=== PATIENT | female | born 1990 | race Hispanic/Latino ===

== ENCOUNTER → 2020-07-12 | Outpatient (CLI) | payer OTHER ==
--- NOTE | 2020-07-12 12:15 | REP ---
INDICATION: PRESENCE OF INTRAUTERINE CONTRACEPTIVE DEVICE COMPARISON: None. TECHNIQUE: Transabdominal pelvic ultrasound followed by transvaginal examination for better evaluation of the endometrium and adnexa with color Doppler evaluation of the ovaries. FINDINGS: Bladder is unremarkable and measures 11.5 x 7.5 x 9.8 sent. Normal anteverted uterus measures 9.7 x 4.0 x 5.3 cm. The endometrial complex measures 10.4 mm thickness. IUD is identified in the lower uterine segment and appears malrotated. Bilateral ovaries are normal in appearance and vascularity without evidence for torsion. Right ovary measures 2.3 x 2.8 x 3.8 cm and includes 1.9 x 2.4 x 1.7 cm physiologic cyst/dominant follicle; R I = 0.76. Left ovary measures 3.5 x 2.1 x 2.9 cm and includes 1.4 x 1.7 x 1.2 cm dominant follicle/physiologic cyst; R I = 0.59. No pelvic fluid or adnexal mass lesion. IMPRESSION: 1. Normal uterus. IUD identified in the lower uterine segment and possibly malrotated 2. Bilateral ovaries are essentially normal and without torsion. <Electronically signed by Stu Yancey > 07/12/20 1214
== END ==
LOC: M RAD 11:14
PROVIDERS: ATTEND Physician Assistant
DX: Z97.5 Presence of (intrauterine) contraceptive device (principal)

== ENCOUNTER → 2020-08-09 | Outpatient (CLI) | payer OTHER | LOC: M LAB 12:17 | PROVIDERS: ATTEND Physician Assistant | DX: Z11.7 Encounter for testing for latent tuberculosis infection (principal) ==

== ENCOUNTER → 2020-08-15 | Outpatient (REF) | payer OTHER | LOC: M SFHCWAGY 11:45 | PROVIDERS: ATTEND Advanced Practice Midwife | DX: Z12.4 Encounter for screening for malignant neoplasm of cervix (principal) | CPT/HCPCS: G0123; G0463 ==

== ENCOUNTER → 2021-02-07 | Outpatient (REF) | payer OTHER ==
[2021-02-07 15:43] LABS: GC DNA AMPLIFICATION NEGATIVE (NEGATIVE)
== END ==
LOC: M SFHCWAGY 12:48
PROVIDERS: ATTEND Advanced Practice Midwife
DX: Z11.3 Encounter for screening for infections with a predominantly sexual mode of transmission (principal)
CPT/HCPCS: 87661; G0463

== ENCOUNTER → 2021-09-09 | Outpatient (CLI) | payer OTHER | LOC: M PLALAB 13:32 | PROVIDERS: ATTEND Advanced Practice Midwife | DX: O26.30 Retained intrauterine contraceptive device in pregnancy, unspecified trimester (principal); Z3A.00 Weeks of gestation of pregnancy not specified ==

== ENCOUNTER → 2021-10-08 | Outpatient (REF) | payer OTHER | LOC: M PLALAB 07:30 | PROVIDERS: ATTEND Specialist | DX: Z34.81 Encounter for supervision of other normal pregnancy, first trimester (principal) ==

== ENCOUNTER → 2021-11-12 | Outpatient (CLI) | payer OTHER | LOC: M PLALAB 09:55 | PROVIDERS: ATTEND Specialist | DX: Z34.81 Encounter for supervision of other normal pregnancy, first trimester (principal) ==

== ENCOUNTER → 2021-12-09 | Outpatient (REF) | payer OTHER | LOC: M SFHCDERM 14:52 | PROVIDERS: ATTEND Nurse Practitioner Family | DX: D23.5 Other benign neoplasm of skin of trunk (principal) | CPT/HCPCS: 11102; 88305; G0463 ==

== ENCOUNTER → 2022-01-01 | Outpatient (CLI) | payer OTHER ==
[2022-01-01 13:53] LABS: BASO # 0.1 10^3/uL (0.0-0.2); BASO % 0.5 % (0.0-1.0); EOS # 0.1 10^3/uL (0.0-0.5); EOS % 1.2 % (0.0-3.0); HEMATOCRIT 37.7 % (36.0-47.0); HEMOGLOBIN 12.4 g/dl (12.0-15.5); LYMPH # 1.9 10^3/uL (1.5-5.0); MEAN CORPUSCULAR HEMOGLOBIN 30.2 pg (27.0-33.0); MEAN CORPUSCULAR HGB CONC 32.9 g/dl (32.0-36.5); MEAN CORPUSCULAR VOLUME 91.7 fl (80.0-96.0); MONO # 0.7 10^3/uL (0.0-0.8); NEUTROPHILS # 6.5 10^3/uL (1.5-8.5); NEUTROPHILS % 70.2 % (36.0-66.0); PLATELET COUNT, AUTOMATED 281 10^3/uL (150-450); RED BLOOD COUNT 4.11 10^6/uL (4.00-5.40); WHITE BLOOD COUNT 9.3 10^3/uL (4.0-10.0)
[2022-01-01 14:57] LABS: HEPATITIS C VIRUS ABY INDEX 0.1 INDEX (<0.8); HIV 1&2 SCREEN CENTAUR NEGATIVE (NEGATIVE)
[2022-01-01 15:32] LABS: GC DNA AMPLIFICATION NEGATIVE (NEGATIVE)
== END ==
LOC: M PLALAB 09:53
PROVIDERS: ATTEND Specialist
DX: Z34.82 Encounter for supervision of other normal pregnancy, second trimester (principal); Z3A.21 21 weeks gestation of pregnancy
CPT/HCPCS: 36415; 85025; 86762; 86780; 86803; 86850; 86900; 86901; 87086; 87340; 87389; 87810; 87850; G0463

== ENCOUNTER → 2022-01-13 | Outpatient (CLI) | payer OTHER | LOC: M WHC 12:07 | PROVIDERS: ATTEND Specialist | DX: Z36.3 Encounter for antenatal screening for malformations (principal); Z3A.24 24 weeks gestation of pregnancy ==

== ENCOUNTER → 2022-01-14 | Outpatient (CLI) | payer OTHER ==
[2022-01-14 13:15] LABS: BASO # 0.1 10^3/uL (0.0-0.2); BASO % 0.5 % (0.0-1.0); EOS # 0.1 10^3/uL (0.0-0.5); EOS % 0.6 % (0.0-3.0); HEMATOCRIT 36.3 % (36.0-47.0); HEMOGLOBIN 11.8 g/dl (12.0-15.5); LYMPH # 2.1 10^3/uL (1.5-5.0); LYMPH % 22.6 % (24.0-44.0); MEAN CORPUSCULAR HEMOGLOBIN 30.1 pg (27.0-33.0); MEAN CORPUSCULAR HGB CONC 32.5 g/dl (32.0-36.5); MEAN CORPUSCULAR VOLUME 92.6 fl (80.0-96.0); MONO # 0.7 10^3/uL (0.0-0.8); MONO % 7.2 % (2.0-8.0); NEUTROPHILS # 6.3 10^3/uL (1.5-8.5); NEUTROPHILS % 67.9 % (36.0-66.0); PLATELET COUNT, AUTOMATED 271 10^3/uL (150-450); RED BLOOD COUNT 3.92 10^6/uL (4.00-5.40); WHITE BLOOD COUNT 9.3 10^3/uL (4.0-10.0)
[2022-01-14 14:05] LABS: ALT/SGPT 24 U/L (12-78); BILIRUBIN,DIRECT < 0.1 MG/DL (0.0-0.2); BILIRUBIN,TOTAL 0.7 MG/DL (0.2-1.0); BLOOD UREA NITROGEN 12 MG/DL (7-18); C REACTIVE PROTEIN QUANTITATIV 0.59 MG/DL (0.00-0.30); CREATININE FOR GFR 0.74 MG/DL (0.55-1.30); FERRITIN 4 NG/ML (8-252); GLOMERULAR FILTRATION RATE > 60.0 (>60); IRON (FE) 54 UG/DL (50-170); PERCENT SATURATION 10.2 % (13.2-45.0); TOTAL IRON BINDING CAPACITY 530 UG/DL (250-450); TOTAL PROTEIN 6.9 GM/DL (6.4-8.2)
[2022-01-14 14:09] LABS: ERYTHROCYTE SEDIMENTATION RATE 22 mm/hr (0-20)
== END ==
LOC: M PLALAB 01-13 12:22
PROVIDERS: ATTEND Internal Medicine Gastroenterology
DX: K51.90 Ulcerative colitis, unspecified, without complications (principal)

== ENCOUNTER → 2022-03-18 | Outpatient (CLI) | payer OTHER | LOC: M PLALAB 11:59 | PROVIDERS: ATTEND Internal Medicine Infectious Disease | DX: R76.12 Nonspecific reaction to cell mediated immunity measurement of gamma interferon antigen response without active tuberculosis (principal) ==

== ENCOUNTER → 2022-03-31 | Outpatient (CLI) | payer OTHER | LOC: M WHC 09:34 | PROVIDERS: ATTEND Obstetrics & Gynecology | DX: Z36.2 Encounter for other antenatal screening follow-up (principal); Z3A.34 34 weeks gestation of pregnancy ==

== ENCOUNTER → 2022-04-22 | Outpatient (REF) | payer OTHER ==
[~2022-04-22] MED LIST: ACET-683 PO; FLON1SPR NARES; LIAL1.2T PO; ZOLO100T PO
== END ==
LOC: M PLALAB 11:13
PROVIDERS: ATTEND Obstetrics & Gynecology
DX: Z36.89 Encounter for other specified antenatal screening (principal); Z3A.37 37 weeks gestation of pregnancy
CPT/HCPCS: 87081; G0463

== ENCOUNTER 2022-04-26 23:37 | Inpatient (IN) | payer OTHER ==
[~2022-04-26] VITALS: Ht 160 cm; Wt 75.6 kg
[2022-04-26 23:51] VITALS: BP 125/79
[2022-04-27] VITALS (21 sets, daily range): BP systolic 106–130; BP diastolic 54–78
[2022-04-27] MEDS ORDERED: LR 1,000 ML IV SCH (00:25)
[2022-04-27] MEDS ORDERED: LACTATED RINGER'S 1000 ML IV STA (00:25)
[2022-04-27] MEDS ORDERED: ZOLO100T PO (00:32)
[2022-04-27] MEDS ORDERED: FLON1SPR NARES (00:32)
[2022-04-27 00:35] LABS: HEMATOCRIT 33.8 % (36.0-47.0); HEMOGLOBIN 10.8 g/dl (12.0-15.5); MEAN CORPUSCULAR HEMOGLOBIN 26.3 pg (27.0-33.0); MEAN CORPUSCULAR VOLUME 82.2 fl (80.0-96.0); PLATELET COUNT, AUTOMATED 319 10^3/uL (150-450); RED BLOOD COUNT 4.11 10^6/uL (4.00-5.40); WHITE BLOOD COUNT 9.7 10^3/uL (4.0-10.0)
[2022-04-27] MEDS ORDERED: HOME MED LIST COMPLETE! XX SCH (00:35)
[2022-04-27] MEDS ORDERED: FENTANYL/ROPIVACAINE/NACL BAG 100 ML EPIDURAL SCH (00:55)
[2022-04-27] MEDS ORDERED: NALOXONE INJ 0.4MG/1ML VIAL (J2310 PER 1MG) IV PRN (00:55)
[2022-04-27] MEDS ORDERED: ONDANSETRON 4MG 2ML VIAL IV PRN (00:55)
[2022-04-27] MEDS ORDERED: ePHEDrine SULFATE 25 MG/5 ML(5MG/ML) SYRINGE IVP PRN (00:55)
[2022-04-27] MEDS ORDERED: LR 500 ML IV PRN (00:55)
[2022-04-27] MEDS ORDERED: EPIDURAL/PCA KEYS XX PRN (00:55)
[2022-04-27] MEDS ORDERED: diphenhydrAMINE 50MG/ML VIAL (J1200) IV PRN (00:55)
[2022-04-27] MEDS ORDERED: OXYTOCIN DRIP 30 UNITS in IV 1 EA IV SCH (02:45)
[2022-04-27] MEDS ORDERED: OXYTOCIN 30 UNITS IN 0.9% NaCl 500ML IV BAG (J2590) As Ordered ONE (02:46)
[2022-04-27] MEDS ORDERED: ACETAMINOPHEN TAB 650MG DOSE (2X325MG) PO PRN (03:25)
[2022-04-27] MEDS ORDERED: METHYLERGONOVINE MALEATE 0.2 MG TAB PO PRN (03:25)
[2022-04-27] MEDS ORDERED: IBUPROFEN 600MG TAB PO PRN (03:25)
[2022-04-27] MEDS ORDERED: DOCUSATE SODIUM 100MG CAPSULE PO PRN (03:25)
[2022-04-27] MEDS ORDERED: RHOGAM 300 MCG (1500 IU) INJ (J2790) IM SCH (03:25)
[2022-04-27] MEDS ORDERED: IBUPROFEN 800 MG TAB PO PRN (03:25)
[2022-04-27] MEDS ORDERED: DIBUCAINE 1% OINTMENT 30GM TOP PRN (03:25)
[2022-04-27] MEDS ORDERED: OXYTOCIN DRIP 30 UNITS in IV 1 EA IV ONE (03:25)
[2022-04-27] MEDS ORDERED: LIAL1.2T PO (08:04)
[2022-04-27] MEDS: SERTRALINE 100 MG TAB PO SCH (09:57)
[2022-04-27] MEDS: PRENATAL VITAMINS CHEWABLE TABLET PO SCH (09:57)
[2022-04-27] MEDS: MESALAMINE 400 MG CAPSULE DELAYED RELEASE (DELZICOL) PO SCH (10:02)
[2022-04-27] MEDS: ACETAMINOPHEN 500 MG TAB PO PRN (16:33)
[2022-04-28] MEDS: ACETAMINOPHEN 500 MG TAB PO PRN (04:53)
[2022-04-28 06:00] VITALS: BP 98/53
[2022-04-28] MEDS ORDERED: INFLUENZA QUADRIVALENT PF VACCINE 0.5ML SYRINGE IM.IMMUN ONE (09:00)
[2022-04-28] MEDS: MESALAMINE 400 MG CAPSULE DELAYED RELEASE (DELZICOL) PO SCH (09:31)
[2022-04-28] MEDS: SERTRALINE 100 MG TAB PO SCH (09:31)
[2022-04-28] MEDS: PRENATAL VITAMINS CHEWABLE TABLET PO SCH (09:32)
[2022-04-28] MEDS ORDERED: ACET-683 PO (11:31)
[2022-04-29] MEDS ORDERED: MEASLES,MUMPS,RUBELLA VACCINE INJ (MMR-II) (90707) SC.IMMUN ONE (09:00)
== END 2022-04-28 14:14 | disposition home or self-care (01) | DRG 807 ==
LOC: M LDO 23:37 → M LDI 04-27 00:02 → M OBS 04-27 05:03
PROVIDERS: ADMIT Specialist; ATTEND Specialist
PROC: 10E0XZZ Delivery of Products of Conception, External Approach (ICD-10-PCS; principal; 2022-04-27)
PROC: 0HQ9XZZ Repair Perineum Skin, External Approach (ICD-10-PCS; 2022-04-27)
DX: O70.0 First degree perineal laceration during delivery (principal); Z37.0 Single live birth; Z3A.38 38 weeks gestation of pregnancy; O99.344 Other mental disorders complicating childbirth; F32.A Depression, unspecified; F41.9 Anxiety disorder, unspecified; Z79.899 Other long term (current) drug therapy

== ENCOUNTER → 2022-09-26 | Outpatient (CLI) | payer OTHER ==
[2022-09-26 14:37] LABS: BASO # 0.1 10^3/uL (0.0-0.2); BASO % 0.9 % (0.0-1.0); EOS # 0.2 10^3/uL (0.0-0.5); EOS % 2.5 % (0.0-3.0); HEMATOCRIT 41.4 % (36.0-47.0); LYMPH # 2.2 10^3/uL (1.5-5.0); LYMPH % 29.1 % (24.0-44.0); MEAN CORPUSCULAR HEMOGLOBIN 26.2 pg (27.0-33.0); MEAN CORPUSCULAR HGB CONC 31.4 g/dl (32.0-36.5); MEAN CORPUSCULAR VOLUME 83.3 fl (80.0-96.0); MONO # 0.4 10^3/uL (0.0-0.8); MONO % 5.3 % (2.0-8.0); NEUTROPHILS # 4.7 10^3/uL (1.5-8.5); NEUTROPHILS % 61.8 % (36.0-66.0); PLATELET COUNT, AUTOMATED 346 10^3/uL (150-450); RED BLOOD COUNT 4.97 10^6/uL (4.00-5.40); WHITE BLOOD COUNT 7.6 10^3/uL (4.0-10.0)
[2022-09-26 14:50] LABS: ERYTHROCYTE SEDIMENTATION RATE 38 mm/hr (0-20)
[2022-09-26 14:58] LABS: C REACTIVE PROTEIN QUANTITATIV < 0.40 MG/DL (<1.0)
[2022-09-26 14:59] LABS: ALBUMIN 3.9 G/DL (3.2-5.2); ALKALINE PHOSPHATASE 106 U/L (46-116); ALT/SGPT 18 U/L (7.0-40); AST/SGOT 22 U/L (<34); BILIRUBIN,DIRECT 0.1 MG/DL (<0.4); BILIRUBIN,TOTAL 0.3 MG/DL (0.3-1.2); BLOOD UREA NITROGEN 14 MG/DL (9-23); CREATININE FOR GFR 0.84 MG/DL (0.55-1.30); GLOMERULAR FILTRATION RATE > 60.0 (>60); TOTAL PROTEIN 7.3 G/DL (5.7-8.2)
== END ==
LOC: M PLALAB 10:04
PROVIDERS: ATTEND Internal Medicine Gastroenterology
DX: K51.90 Ulcerative colitis, unspecified, without complications (principal)

== ENCOUNTER → 2022-09-26 | Outpatient (CLI) | payer OTHER ==
[2022-09-26 14:38] LABS: WHITE BLOOD COUNT 7.6 10^3/uL (4.0-10.0)
[2022-09-26 14:39] LABS: BASO # 0.1 10^3/uL (0.0-0.2); BASO % 0.8 % (0.0-1.0); EOS # 0.2 10^3/uL (0.0-0.5); EOS % 2.4 % (0.0-3.0); HEMOGLOBIN 12.9 g/dl (12.0-15.5); LYMPH # 2.2 10^3/uL (1.5-5.0); LYMPH % 28.9 % (24.0-44.0); MEAN CORPUSCULAR HEMOGLOBIN 26.3 pg (27.0-33.0); MEAN CORPUSCULAR HGB CONC 31.5 g/dl (32.0-36.5); MEAN CORPUSCULAR VOLUME 83.7 fl (80.0-96.0); MONO # 0.4 10^3/uL (0.0-0.8); MONO % 5.1 % (2.0-8.0); NEUTROPHILS # 4.8 10^3/uL (1.5-8.5); NEUTROPHILS % 62.5 % (36.0-66.0); PLATELET COUNT, AUTOMATED 343 10^3/uL (150-450)
[2022-09-26 14:58] LABS: ALBUMIN 3.9 G/DL (3.2-5.2); ALKALINE PHOSPHATASE 106 U/L (46-116); ALT/SGPT 20 U/L (7.0-40); AST/SGOT 21 U/L (<34); BILIRUBIN,TOTAL 0.3 MG/DL (0.3-1.2); BLOOD UREA NITROGEN 13 MG/DL (9-23); CALCIUM LEVEL 9.1 MG/DL (8.5-10.1); CARBON DIOXIDE LEVEL 27 MMOL/L (20-31); CHLORIDE LEVEL 103 MMOL/L (98-107); CHOLESTEROL LEVEL 192 MG/DL (<200); CHOLESTEROL RISK RATIO 1.84 (<5); CREATININE FOR GFR 0.85 MG/DL (0.55-1.30); GLOMERULAR FILTRATION RATE > 60.0 (>60); GLUCOSE, FASTING 81 MG/DL (60-100); HCG, SERUM QUALITATIVE NEGATIVE (NEGATIVE); HDL CHOLESTEROL 103.9 MG/DL (>40); LDL CHOLESTEROL 72.3 MG/DL (<100); NON-HDL-C 88.1 MG/DL; POTASSIUM SERUM 4.2 MMOL/L (3.5-5.1); SODIUM LEVEL 137 MMOL/L (136-145); TOTAL PROTEIN 7.3 G/DL (5.7-8.2); TRIGLYCERIDES LEVEL 79 MG/DL (<150)
[2022-09-26 15:01] LABS: THYROID STIMULATING HORMONE 0.534 uIU/ML (0.55-4.78)
[2022-09-26 15:35] LABS: HEMOGLOBIN A1c 5.6 % (4.0-6.0)
== END ==
LOC: M PLALAB 09:54
PROVIDERS: ATTEND Physician Assistant
DX: F41.9 Anxiety disorder, unspecified (principal); Z13.1 Encounter for screening for diabetes mellitus; B37.31 Acute candidiasis of vulva and vagina; Z32.00 Encounter for pregnancy test, result unknown; K51.90 Ulcerative colitis, unspecified, without complications

== ENCOUNTER → 2022-10-14 | Day surgery (SDC) | payer OTHER ==
[~2022-10-14] VITALS: Ht 160 cm; Wt 64.0 kg
[~2022-10-14] MED LIST changes: +NS 1,000 ML IV ONE
== END | disposition home or self-care (01) ==
LOC: M OPP 09:57
PROVIDERS: ATTEND Internal Medicine Gastroenterology
DX: Z53.29 Procedure and treatment not carried out because of patient's decision for other reasons (principal)

== ENCOUNTER → 2023-01-09 | Outpatient (CLI) | payer OTHER ==
[~2023-01-09] MED LIST changes: -NS 1,000 ML IV ONE
[2023-01-09 13:59] LABS: HEMATOCRIT 42.9 % (36.0-47.0); HEMOGLOBIN 13.7 g/dl (12.0-15.5); MEAN CORPUSCULAR HEMOGLOBIN 27.7 pg (27.0-33.0); MEAN CORPUSCULAR HGB CONC 31.9 g/dl (32.0-36.5); MEAN CORPUSCULAR VOLUME 86.8 fl (80.0-96.0); PLATELET COUNT, AUTOMATED 336 10^3/uL (150-450); RED BLOOD COUNT 4.94 10^6/uL (4.00-5.40); WHITE BLOOD COUNT 5.8 10^3/uL (4.0-10.0)
[2023-01-09 14:17] LABS: ERYTHROCYTE SEDIMENTATION RATE 33 mm/hr (0-20)
[2023-01-09 14:30] LABS: ALBUMIN 3.9 G/DL (3.2-5.2); ALKALINE PHOSPHATASE 107 U/L (46-116); ALT/SGPT 27 U/L (7.0-40); AST/SGOT 23 U/L (<34); BILIRUBIN,TOTAL 0.4 MG/DL (0.3-1.2); BLOOD UREA NITROGEN 18 MG/DL (9-23); CALCIUM LEVEL 9.1 MG/DL (8.5-10.1); CARBON DIOXIDE LEVEL 26 MMOL/L (20-31); CHLORIDE LEVEL 104 MMOL/L (98-107); CREATININE FOR GFR 0.72 MG/DL (0.55-1.30); GLOMERULAR FILTRATION RATE > 60.0 (>60); GLUCOSE, FASTING 83 MG/DL (60-100); HEPATITIS B SURFACE ANTIBODY POSITIVE (POSITIVE); POTASSIUM SERUM 4.7 MMOL/L (3.5-5.1); SODIUM LEVEL 135 MMOL/L (136-145); TOTAL 25(OH) VITAMIN D 22.5 NG/ML (20.0-100.0); TOTAL PROTEIN 7.4 G/DL (5.7-8.2); VITAMIN B12 LEVEL 623 PG/ML (211-911)
[2023-01-09 14:41] LABS: HEPATITIS B SURFACE ANTIGEN NEGATIVE (NEGATIVE)
[2023-01-09 15:03] LABS: HEPATITIS C VIRUS ABY INDEX 0.08 INDEX (<0.8)
[2023-01-12 16:08] LABS: HEPATITIS A IgG TOTAL Positive (Negative); HEPATITIS B CORE ANTIBODY IGG Negative (Negative); HERPES ZOSTER, VARICELLA IgG 1702 index (Immune >165)
== END ==
LOC: M PLALAB 10:13
PROVIDERS: ATTEND Physician Assistant Medical
DX: K51.011 Ulcerative (chronic) pancolitis with rectal bleeding (principal)

== ENCOUNTER → 2023-03-11 | Outpatient (CLI) | payer OTHER | LOC: M WHC 14:21 | PROVIDERS: ATTEND Advanced Practice Midwife | DX: Z53.9 Procedure and treatment not carried out, unspecified reason (principal) ==

== ENCOUNTER → 2023-03-11 | Outpatient (CLI) | payer OTHER ==
[2023-03-11 18:14] LABS: HEMATOCRIT 38.5 % (36.0-47.0); HEMOGLOBIN 12.5 g/dl (12.0-15.5); MEAN CORPUSCULAR HEMOGLOBIN 28.3 pg (27.0-33.0); MEAN CORPUSCULAR HGB CONC 32.5 g/dl (32.0-36.5); MEAN CORPUSCULAR VOLUME 87.3 fl (80.0-96.0); PLATELET COUNT, AUTOMATED 309 10^3/uL (150-450); RED BLOOD COUNT 4.41 10^6/uL (4.00-5.40); WHITE BLOOD COUNT 11.3 10^3/uL (4.0-10.0)
[2023-03-11 19:09] LABS: HIV 1&2 SCREEN NEGATIVE (NEGATIVE)
[2023-03-11 19:18] LABS: HEPATITIS C VIRUS ABY INDEX 0.13 INDEX (<0.8)
[2023-03-11 20:05] LABS: GC DNA AMPLIFICATION NEGATIVE (NEGATIVE)
== END ==
LOC: M PLALAB 14:43
PROVIDERS: ATTEND Advanced Practice Midwife
DX: Z34.82 Encounter for supervision of other normal pregnancy, second trimester (principal)

== ENCOUNTER → 2023-05-11 | Outpatient (CLI) | payer OTHER | LOC: M WHC 10:00 | PROVIDERS: ATTEND Advanced Practice Midwife | DX: Z34.82 Encounter for supervision of other normal pregnancy, second trimester (principal); Z3A.24 24 weeks gestation of pregnancy ==

== ENCOUNTER → 2023-06-18 | Outpatient (CLI) | payer OTHER ==
[2023-06-18 13:49] LABS: HEMOGLOBIN 11.4 g/dl (12.0-15.5); MEAN CORPUSCULAR HEMOGLOBIN 28.4 pg (27.0-33.0); MEAN CORPUSCULAR HGB CONC 32.6 g/dl (32.0-36.5); MEAN CORPUSCULAR VOLUME 87.1 fl (80.0-96.0); PLATELET COUNT, AUTOMATED 344 10^3/uL (150-450); RED BLOOD COUNT 4.02 10^6/uL (4.00-5.40); WHITE BLOOD COUNT 9.8 10^3/uL (4.0-10.0)
[2023-06-18 16:14] LABS: CHLAMYDIA DNA AMPLIFICATION NEGATIVE (NEGATIVE); GC DNA AMPLIFICATION NEGATIVE (NEGATIVE)
== END ==
LOC: M PLALAB 09:49
PROVIDERS: ATTEND Advanced Practice Midwife
DX: Z34.82 Encounter for supervision of other normal pregnancy, second trimester (principal)

== ENCOUNTER → 2023-06-18 | Outpatient (CLI) | payer OTHER ==
[2023-06-18 13:48] LABS: HEMOGLOBIN 11.3 g/dl (12.0-15.5); MEAN CORPUSCULAR HEMOGLOBIN 28.3 pg (27.0-33.0); MEAN CORPUSCULAR HGB CONC 32.3 g/dl (32.0-36.5); MEAN CORPUSCULAR VOLUME 87.7 fl (80.0-96.0); PLATELET COUNT, AUTOMATED 342 10^3/uL (150-450); RED BLOOD COUNT 3.99 10^6/uL (4.00-5.40); WHITE BLOOD COUNT 9.8 10^3/uL (4.0-10.0)
[2023-06-18 14:09] LABS: ERYTHROCYTE SEDIMENTATION RATE 52 mm/hr (0-20)
[2023-06-18 14:24] LABS: TOTAL 25(OH) VITAMIN D 20.1 NG/ML (20.0-100.0)
[2023-06-18 15:48] LABS: ALBUMIN 2.6 G/DL (3.2-5.2); ALKALINE PHOSPHATASE 109 U/L (46-116); ALT/SGPT 21 U/L (7.0-40); AST/SGOT 18 U/L (<34); BILIRUBIN,TOTAL 0.2 MG/DL (0.3-1.2); BLOOD UREA NITROGEN 13 MG/DL (9-23); CALCIUM LEVEL 8.7 MG/DL (8.5-10.1); CARBON DIOXIDE LEVEL 21 MMOL/L (20-31); CHLORIDE LEVEL 103 MMOL/L (98-107); CREATININE FOR GFR 0.58 MG/DL (0.55-1.30); GLOMERULAR FILTRATION RATE > 60.0 (>60); GLUCOSE, FASTING 113 MG/DL (60-100); POTASSIUM SERUM 4.2 MMOL/L (3.5-5.1); SODIUM LEVEL 135 MMOL/L (136-145); TOTAL PROTEIN 6.3 G/DL (5.7-8.2); VITAMIN B12 LEVEL 425 PG/ML (211-911)
== END ==
LOC: M PLALAB 09:40
PROVIDERS: ATTEND Family Medicine
DX: K51.011 Ulcerative (chronic) pancolitis with rectal bleeding (principal)

== ENCOUNTER → 2023-07-10 | Outpatient (CLI) | payer OTHER | LOC: M WHC 10:27 | PROVIDERS: ATTEND Advanced Practice Midwife | DX: Z34.83 Encounter for supervision of other normal pregnancy, third trimester (principal); Z3A.33 33 weeks gestation of pregnancy ==

== ENCOUNTER 2023-07-12 11:36 | Emergency (ER) | payer OTHER ==
[~2023-07-12] VITALS: Ht 162.6 cm; Wt 81.8 kg
[2023-07-12 12:32] VITALS: BP 105/72; TEMP 96.1; O2SAT 99
== END 2023-07-12 12:38 | disposition admitted as inpatient to this hospital (09) ==
LOC: EDBD 11:36 → M ED 11:36
DX: Z53.21 Procedure and treatment not carried out due to patient leaving prior to being seen by health care provider (principal)

== ENCOUNTER 2023-07-12 12:43 | Outpatient (CLI) | payer OTHER ==
[~2023-07-12] VITALS: Ht 162.6 cm; Wt 83.0 kg
[2023-07-12] MEDS ORDERED: HOME MED LIST COMPLETE! XX SCH (13:00)
[2023-07-12 13:01] VITALS: BP 114/64; O2SAT 100
[2023-07-12 13:42] VITALS: BP 105/64; O2SAT 98
== END 2023-07-12 13:55 | disposition home or self-care (01) ==
LOC: M LDO 12:43
PROVIDERS: ATTEND Obstetrics & Gynecology
DX: O36.5930 Maternal care for other known or suspected poor fetal growth, third trimester, not applicable or unspecified (principal); V49.60XA Unspecified car occupant injured in collision with unspecified motor vehicles in traffic accident, initial encounter; Y92.9 Unspecified place or not applicable; Y93.9 Activity, unspecified; Y99.9 Unspecified external cause status; Z3A.33 33 weeks gestation of pregnancy; Z04.1 Encounter for examination and observation following transport accident
CPT/HCPCS: 59025; 93041; 94760; G0463

== ENCOUNTER 2023-07-12 23:40 | Outpatient (CLI) | payer OTHER ==
[~2023-07-12] VITALS: Ht 162.6 cm; Wt 83.9 kg
[2023-07-12 23:55] VITALS: BP 122/69; O2SAT 100
[2023-07-13] MEDS ORDERED: HOME MED LIST COMPLETE! XX SCH
[2023-07-13 01:53] VITALS: BP 121/62
== END 2023-07-13 01:58 | disposition home or self-care (01) ==
LOC: M LDO 23:40
PROVIDERS: ATTEND Obstetrics & Gynecology
DX: O47.03 False labor before 37 completed weeks of gestation, third trimester (principal); Z3A.33 33 weeks gestation of pregnancy
CPT/HCPCS: 59025; G0463

== ENCOUNTER → 2023-07-31 | Outpatient (REF) | payer OTHER | LOC: M PLALAB 11:56 | PROVIDERS: ATTEND Obstetrics & Gynecology | DX: Z33.1 Pregnant state, incidental (principal) | CPT/HCPCS: 76815; 87081; G0463 ==

== ENCOUNTER → 2023-08-10 | Outpatient (CLI) | payer OTHER | LOC: M WHC 10:52 | PROVIDERS: ATTEND Advanced Practice Midwife | DX: O99.343 Other mental disorders complicating pregnancy, third trimester (principal); F41.9 Anxiety disorder, unspecified; Z36.89 Encounter for other specified antenatal screening; Z3A.37 37 weeks gestation of pregnancy ==

== ENCOUNTER → 2023-09-03 | Outpatient (CLI) | payer OTHER ==
[~2023-09-03] MED LIST changes: +HYDR25OIN TOP
[2023-09-03 13:12] LABS: ALBUMIN 2.9 G/DL (3.2-5.2); ALKALINE PHOSPHATASE 192 U/L (46-116); ALT/SGPT 35 U/L (7.0-40); AST/SGOT 24 U/L (<34); BILIRUBIN,TOTAL 0.3 MG/DL (0.3-1.2); BLOOD UREA NITROGEN 14 MG/DL (9-23); CALCIUM LEVEL 8.9 MG/DL (8.5-10.1); CARBON DIOXIDE LEVEL 24 MMOL/L (20-31); CHLORIDE LEVEL 105 MMOL/L (98-107); CREATININE FOR GFR 0.71 MG/DL (0.55-1.30); GLOMERULAR FILTRATION RATE > 60.0 (>60); GLUCOSE, FASTING 84 MG/DL (60-100); POTASSIUM SERUM 4.9 MMOL/L (3.5-5.1); SODIUM LEVEL 139 MMOL/L (136-145)
[2023-09-03 13:13] LABS: TOTAL 25(OH) VITAMIN D 32.6 NG/ML (20.0-100.0); VITAMIN B12 LEVEL 668 PG/ML (211-911)
[2023-09-03 13:24] LABS: HEMOGLOBIN 9.5 g/dl (12.0-15.5); MEAN CORPUSCULAR HEMOGLOBIN 23.8 pg (27.0-33.0); MEAN CORPUSCULAR HGB CONC 29.7 g/dl (32.0-36.5); PLATELET COUNT, AUTOMATED 594 10^3/uL (150-450); WHITE BLOOD COUNT 10.2 10^3/uL (4.0-10.0)
[2023-09-03 13:41] LABS: ERYTHROCYTE SEDIMENTATION RATE 51 mm/hr (0-20)
== END ==
LOC: M PLALAB 09:56
PROVIDERS: ATTEND Physician Assistant Medical
DX: K51.011 Ulcerative (chronic) pancolitis with rectal bleeding (principal)

== ENCOUNTER → 2023-10-19 | Outpatient (CLI) | payer OTHER ==
[2023-10-19 12:30] LABS: HEMOGLOBIN 9.3 g/dl (12.0-15.5); MEAN CORPUSCULAR HEMOGLOBIN 21.5 pg (27.0-33.0); MEAN CORPUSCULAR HGB CONC 29.1 g/dl (32.0-36.5); MEAN CORPUSCULAR VOLUME 74.1 fl (80.0-96.0); PLATELET COUNT, AUTOMATED 495 10^3/uL (150-450); RED BLOOD COUNT 4.32 10^6/uL (4.00-5.40); WHITE BLOOD COUNT 9.4 10^3/uL (4.0-10.0)
[2023-10-19 12:44] LABS: ERYTHROCYTE SEDIMENTATION RATE 35 mm/hr (0-20)
[2023-10-19 12:51] LABS: LIPASE 27 U/L (12-53)
[2023-10-19 12:52] LABS: AMYLASE 61 U/L (30-118)
[2023-10-19 12:53] LABS: ALBUMIN 2.9 G/DL (3.2-5.2); ALKALINE PHOSPHATASE 146 U/L (46-116); ALT/SGPT 21 U/L (7.0-40); AST/SGOT 16 U/L (<34); BILIRUBIN,TOTAL 0.2 MG/DL (0.3-1.2); BLOOD UREA NITROGEN 9 MG/DL (9-23); CARBON DIOXIDE LEVEL 26 MMOL/L (20-31); CHLORIDE LEVEL 106 MMOL/L (98-107); CREATININE FOR GFR 0.92 MG/DL (0.55-1.30); GLOMERULAR FILTRATION RATE > 60.0 (>60); GLUCOSE, FASTING 86 MG/DL (60-100); SODIUM LEVEL 137 MMOL/L (136-145); TOTAL PROTEIN 6.5 G/DL (5.7-8.2)
== END ==
LOC: M PLALAB 09:52
PROVIDERS: ATTEND Physician Assistant Medical
DX: K51.011 Ulcerative (chronic) pancolitis with rectal bleeding (principal)

== ENCOUNTER → 2024-01-04 | Outpatient (CLI) | payer OTHER ==
[~2024-01-04] MED LIST changes: +FLON1SPR; +MAGN200T PO; +PRED5PAK2 PO; +THERTAB52 PO; +[UNRECOGNIZED DRUG - OTHER] PO
[2024-01-04 17:43] LABS: HEMOGLOBIN 9.9 g/dl (12.0-15.5); MEAN CORPUSCULAR HEMOGLOBIN 20.2 pg (27.0-33.0); MEAN CORPUSCULAR HGB CONC 29.1 g/dl (32.0-36.5); MEAN CORPUSCULAR VOLUME 69.2 fl (80.0-96.0); PLATELET COUNT, AUTOMATED 529 10^3/uL (150-450); RED BLOOD COUNT 4.91 10^6/uL (4.00-5.40); WHITE BLOOD COUNT 9.1 10^3/uL (4.0-10.0)
[2024-01-04 18:08] LABS: ERYTHROCYTE SEDIMENTATION RATE 32 mm/hr (0-20)
[2024-01-04 18:13] LABS: ALBUMIN 4.1 G/DL (3.2-5.2); ALKALINE PHOSPHATASE 121 U/L (46-116); ALT/SGPT 23 U/L (7.0-40); AST/SGOT 16 U/L (<34); BILIRUBIN,TOTAL 0.2 MG/DL (0.3-1.2); BLOOD UREA NITROGEN 15 MG/DL (9-23); CALCIUM LEVEL 9.7 MG/DL (8.5-10.1); CARBON DIOXIDE LEVEL 24 MMOL/L (20-31); CHLORIDE LEVEL 107 MMOL/L (98-107); CREATININE FOR GFR 1.06 MG/DL (0.55-1.30); GLOMERULAR FILTRATION RATE > 60.0 (>60); GLUCOSE, FASTING 96 MG/DL (60-100); POTASSIUM SERUM 4.7 MMOL/L (3.5-5.1); SODIUM LEVEL 138 MMOL/L (136-145); TOTAL PROTEIN 7.3 G/DL (5.7-8.2)
[2024-01-04 18:15] LABS: TOTAL 25(OH) VITAMIN D 24.3 NG/ML (20.0-100.0); VITAMIN B12 LEVEL 628 PG/ML (211-911)
== END ==
LOC: M PLALAB 15:59
PROVIDERS: ATTEND Physician Assistant Medical
DX: K51.011 Ulcerative (chronic) pancolitis with rectal bleeding (principal)

== ENCOUNTER → 2024-01-05 | Outpatient (REF) | payer OTHER ==
[2024-01-08 10:57] LABS: QuantiFERON-TB Gold Plus NEGATIVE (NEGATIVE)
== END ==
LOC: M PLALAB 13:17
PROVIDERS: ATTEND Physician Assistant Medical
DX: K51.011 Ulcerative (chronic) pancolitis with rectal bleeding (principal)

== ENCOUNTER 2024-02-18 07:02 | Day surgery (SDC) | payer OTHER ==
[~2024-02-18] VITALS: Ht 162.6 cm; Wt 78.9 kg
[2024-02-18 07:34] LABS: HEMATOCRIT 38.2 % (36.0-47.0); HEMOGLOBIN 11.3 g/dl (12.0-15.5); MEAN CORPUSCULAR HEMOGLOBIN 20.7 pg (27.0-33.0); MEAN CORPUSCULAR HGB CONC 29.6 g/dl (32.0-36.5); MEAN CORPUSCULAR VOLUME 70.1 fl (80.0-96.0); PLATELET COUNT, AUTOMATED 406 10^3/uL (150-450); RED BLOOD COUNT 5.45 10^6/uL (4.00-5.40); WHITE BLOOD COUNT 6.3 10^3/uL (4.0-10.0)
[2024-02-18] MEDS: LR 1,000 ML IV SCH (07:45)
[2024-02-18] MEDS ORDERED: ONDANSETRON 4MG 2ML VIAL As Ordered ONE (08:07)
[2024-02-18] MEDS ORDERED: LIDOCAINE 2% 100MG/5ML SDV (FOR ANES.) As Ordered ONE (08:07)
[2024-02-18] MEDS ORDERED: propofoL 200 MG/20 ML VIAL As Ordered ONE (08:07)
[2024-02-18] MEDS ORDERED: MIDAZOLAM INJ 2MG/2ML VIAL As Ordered ONE (08:07)
[2024-02-18] MEDS ORDERED: ROCURONIUM BROMIDE 50MG/5ML VIAL As Ordered ONE (08:07)
[2024-02-18] MEDS ORDERED: SUGAMMADEX SODIUM 500 MG/5 ML VIAL (BRIDION) As Ordered ONE (08:07)
[2024-02-18] MEDS ORDERED: fentaNYL 100 MCG/2 ML INJECTION As Ordered ONE (08:07)
[2024-02-18] MEDS ORDERED: KETOROLAC 60MG 2ML VIAL As Ordered ONE (08:07)
[2024-02-18] MEDS ORDERED: SEVOFLURANE INHAL SOLN 250 ML BTL As Ordered ONE (08:43)
[2024-02-18] MEDS ORDERED: dexmedeTOMIDine (4MCG/ML)200MCG/50ML BTL (PRECEDEX) As Ordered ONE (08:45)
[2024-02-18] MEDS ORDERED: PHENYLephrine 500MCG 5ML (100MCG/ML) SYRINGE As Ordered ONE (09:45)
[2024-02-18] MEDS ORDERED: ACETAMINOPHEN 1000MG 100ML IV BAG As Ordered ONE (09:53)
[2024-02-18] MEDS ORDERED: LACRILUBE (AKWA TEARS) OPHTH OINT 3.5GM As Ordered ONE (10:09)
[2024-02-18] MEDS ORDERED: ONDANSETRON 4MG 2ML VIAL IV PRN (10:15)
[2024-02-18] MEDS ORDERED: LR 1,000 ML IV SCH (10:15)
[2024-02-18] MEDS ORDERED: fentaNYL 100 MCG/2 ML INJECTION IV PRN (10:15)
[2024-02-18] MEDS ORDERED: HYDROMORPHONE HCL 0.5 MG/ 0.5 ML SYRINGE IV PRN (10:15)
[2024-02-18] MEDS ORDERED: oxyCODONE 5MG TAB PO PRN (10:15)
[2024-02-18 11:15] VITALS: BP 100/58; TEMP 97; O2SAT 100
== END 2024-02-18 12:10 | disposition home or self-care (01) ==
LOC: M SDC 07:02
PROVIDERS: ATTEND Obstetrics & Gynecology
DX: Z30.2 Encounter for sterilization (principal); N83.8 Other noninflammatory disorders of ovary, fallopian tube and broad ligament; K51.90 Ulcerative colitis, unspecified, without complications; F41.9 Anxiety disorder, unspecified; Z79.899 Other long term (current) drug therapy; J30.2 Other seasonal allergic rhinitis; Z90.89 Acquired absence of other organs

== ENCOUNTER → 2024-04-19 | Outpatient (CLI) | payer OTHER ==
[2024-04-19 18:04] LABS: HEMATOCRIT 41.4 % (36.0-47.0); HEMOGLOBIN 13.3 g/dl (12.0-15.5); MEAN CORPUSCULAR HEMOGLOBIN 25.8 pg (27.0-33.0); MEAN CORPUSCULAR HGB CONC 32.1 g/dl (32.0-36.5); MEAN CORPUSCULAR VOLUME 80.2 fl (80.0-96.0); PLATELET COUNT, AUTOMATED 318 10^3/uL (150-450); RED BLOOD COUNT 5.16 10^6/uL (4.00-5.40); WHITE BLOOD COUNT 5.9 10^3/uL (4.0-10.0)
[2024-04-19 18:15] LABS: ERYTHROCYTE SEDIMENTATION RATE 22 mm/hr (0-20)
[2024-04-19 18:32] LABS: ALBUMIN 3.8 G/DL (3.2-5.2); ALKALINE PHOSPHATASE 128 U/L (46-116); ALT/SGPT 24 U/L (7.0-40); AST/SGOT 17 U/L (<34); BILIRUBIN,TOTAL 0.2 MG/DL (0.3-1.2); BLOOD UREA NITROGEN 17 MG/DL (9-23); CARBON DIOXIDE LEVEL 26 MMOL/L (20-31); CHLORIDE LEVEL 106 MMOL/L (98-107); CREATININE FOR GFR 0.71 MG/DL (0.55-1.30); GLOMERULAR FILTRATION RATE > 60.0 (>60); GLUCOSE, FASTING 90 MG/DL (60-100); POTASSIUM SERUM 4.5 MMOL/L (3.5-5.1); SODIUM LEVEL 137 MMOL/L (136-145); TOTAL PROTEIN 7.5 G/DL (5.7-8.2)
[2024-04-19 18:35] LABS: TOTAL 25(OH) VITAMIN D 26.8 NG/ML (20.0-100.0); VITAMIN B12 LEVEL 699 PG/ML (211-911)
== END ==
LOC: M PLALAB 14:27
PROVIDERS: ATTEND Physician Assistant Medical
DX: K51.011 Ulcerative (chronic) pancolitis with rectal bleeding (principal)

== ENCOUNTER → 2024-10-14 | Outpatient (CLI) | payer OTHER ==
[2024-10-14 18:13] LABS: ALBUMIN 3.9 G/DL (3.2-5.2); ALKALINE PHOSPHATASE 96 U/L (35-104); ALT/SGPT 48 U/L (7.0-40); AST/SGOT 66 U/L (<34); BILIRUBIN,DIRECT < 0.1 MG/DL (<0.4); BILIRUBIN,TOTAL 0.2 MG/DL (0.3-1.2); TOTAL PROTEIN 7.1 G/DL (5.7-8.2)
== END ==
LOC: M PLALAB 15:51
PROVIDERS: ATTEND Internal Medicine Gastroenterology
DX: K51.011 Ulcerative (chronic) pancolitis with rectal bleeding (principal)